=== PATIENT | male | born 1995 | race Caucasian/White ===

== ENCOUNTER 2020-08-30 12:17 | Emergency (ER) | payer SELFPAY ==
[~2020-08-30] VITALS: Ht 182.8 cm; Wt 92.1 kg
--- NOTE | 2020-08-30 12:30 | ED GU-Male ---
General Chief Complaint: - Urinary Stated Complaint: BLOOD IN URINE History of Present Illness Date Seen by Provider: August 30, 2020 Time Seen by Provider: 12:26 Initial Comments 25-year-old male presents with blood in his semen and in his urine patient reports that him and his girlfriend were having intercourse. He ejaculated semen that had blood tinged to and then urinated blood. He has little bit of left flank pain. No fevers chills nausea vomiting or other systemic complaints. Patient reports he been having flank pain for about a week. Allergies and Home Medications Allergies Coded Allergies: No Known Drug Allergies (Unverified , 08/30/20) Patient Home Medication List Home Medication List Reviewed: Yes Review of Systems Review of Systems Constitutional: No chills, No fever EENTM: no symptoms reported Respiratory: no symptoms reported Cardiovascular: no symptoms reported Gastrointestinal: no symptoms reported Genitourinary: see HPI Musculoskeletal: no symptoms reported Psychiatric/Neurological: No Symptoms Reported Past Gitmbqy-Sawbzm-Vwfvmy Hx Past Med/Social Hx: Reviewed Nursing Past Med/Soc Hx Physical Exam Vital Signs Vital Signs - First Documented 08/30/20 12:22 Temp 37.0 Pulse 88 Resp 16 B/P (MAP) 120/65 (83) Pulse Ox 99 O2 Delivery Room Air Capillary Refill : Height, Weight, BMI Height: '" Weight: lbs. oz. kg; BMI Method: General Appearance: WD/WN, no apparent distress Cardiovascular: normal peripheral pulses, regular rate, rhythm, no edema Respiratory: lungs clear, normal breath sounds, no respiratory distress Gastrointestinal: non tender, soft Back: CVA tenderness (L) (mild ) Extremities: normal range of motion, non-tender Neurologic/Psychiatric: alert, normal mood/affect, oriented x 3 Progress/Results/Core Measures Suspected Sepsis SIRS Temperature: Pulse: Respiratory Rate: Blood Pressure / Mean: Results/Orders Lab Results Laboratory Tests Test 08/30/20 12:56 Range/Units Urine Color YELLOW Urine Clarity CLEAR Urine pH 6.0 5-9 Urine Specific [place] >=1.030 1.016-1.022 Urine Protein NEGATIVE NEGATIVE Urine Glucose (UA) NEGATIVE NEGATIVE Urine Ketones NEGATIVE NEGATIVE Urine Nitrite NEGATIVE NEGATIVE Urine Bilirubin NEGATIVE NEGATIVE Urine Urobilinogen 0.2 < = 1.0 MG/DL Urine Leukocyte Esterase NEGATIVE NEGATIVE Urine RBC (Auto) 3+ H NEGATIVE Urine RBC 10-25 H /HPF Urine WBC NONE /HPF Urine Squamous Epithelial Cells NONE /HPF Urine Crystals NONE /LPF Urine Bacteria NEGATIVE /HPF Urine Casts NONE /LPF Urine Mucus SMALL H /LPF Urine Culture Indicated NO My Orders Orders - MARIAOMAR Eduardo DO Ua Culture If Indicated (08/30/20 12:31) Ct Abdomen/Pelvis Wo (08/30/20 13:12) Vital Signs/I&O 08/30/20 12:22 Temp 37.0 Pulse 88 Resp 16 B/P (MAP) 120/65 (83) Pulse Ox 99 O2 Delivery Room Air Capillary Refill : Progress Note : Progress Note Patient with some gross hematuria and hematospermia. Likely due to a broken blood vessel in his urinary tract. I discussed with patient other causes. Patient was concerned about a possible kidney stone and want to have a CT since he does not have a primary care provider. CT was obtained and reviewed which shows no stone. Discussed with patient that if his symptoms last for more than a few days he should follow-up with a urologist. Patient stable and discharged Diagnostic Imaging Diagonstic Imaging: CT Plain Films/CT/US/NM/MRI: abdomen Comments FINDINGS: The lung bases are clear. The heart is normal in size. There is no pericardial effusion. The liver demonstrates no focal lesions. The spleen appears normal. The pancreas is normal. The adrenal glands appear normal. The kidneys demonstrates no hydronephrosis or calculi. The bowel loops are nondistended without obstruction. The appendix is normal. No free fluid or free air is seen. The urinary bladder is decompressed. No acute osseous abnormality is seen. IMPRESSION: 1. No hydronephrosis or obstructing calculi. No acute abnormality seen in the abdomen or pelvis. Departure Impression Primary Impression: Hematuria Qualified Codes: R31.0 - Gross hematuria Additional Impression: Hematospermia Disposition: HOME, SELF-CARE Condition: Stable Departure-Patient Inst. Referrals: NO,LOCAL PHYSICIAN (PCP/Family) Primary Care Physician Patient Instructions: Blood in the Urine (Hematuria), Adult (DC) Add. Discharge Instructions: Follow up with urologist in 1 wk if symptoms not improving. All discharge instructions reviewed with patient and/or family. Voiced understanding. OMAR MARIA DO August 30, 2020 12:30
[2020-08-30 13:04] LABS: BACTERIA,URINE NEGATIVE /HPF; BILIRUBIN,URINE NEGATIVE (NEGATIVE); CLARITY,URINE CLEAR; COLOR,URINE YELLOW; GLUCOSE, URINE (UA) NEGATIVE (NEGATIVE); KETONES,URINE NEGATIVE (NEGATIVE); LEUKOCYTE ESTERASE ,URINE NEGATIVE (NEGATIVE); NITRITE,URINE NEGATIVE (NEGATIVE); PROTEIN,URINE NEGATIVE (NEGATIVE)
--- NOTE | 2020-08-30 14:27 | Diagnostic Imaging Report ---
PROCEDURE: CT abdomen and pelvis without contrast. TECHNIQUE: Multiple contiguous axial images were obtained through the abdomen and pelvis without the use of intravenous contrast. Auto Exposure Controls were utilized during the CT exam to meet ALARA standards for radiation dose reduction. INDICATION: Hematuria, left flank pain COMPARISON: None FINDINGS: The lung bases are clear. The heart is normal in size. There is no pericardial effusion. The liver demonstrates no focal lesions. The spleen appears normal. The pancreas is normal. The adrenal glands appear normal. The kidneys demonstrates no hydronephrosis or calculi. The bowel loops are nondistended without obstruction. The appendix is normal. No free fluid or free air is seen. The urinary bladder is decompressed. No acute osseous abnormality is seen. IMPRESSION: 1. No hydronephrosis or obstructing calculi. No acute abnormality seen in the abdomen or pelvis. Dictated by: Dictated on workstation # [id number]
[2020-08-30 14:35] VITALS: BP 120/65
== END 2020-08-30 14:32 | disposition home or self-care (01) ==
LOC: ER FS 12:19
DX: R31.0 Gross hematuria (principal); R36.1 Hematospermia
CPT/HCPCS: 74176; 81000